=== PATIENT | female | born 1980 | race Caucasian/White ===

== ENCOUNTER 2020-05-05 09:54 | Outpatient (CLI) | payer BC, SELFPAY ==
[2020-05-05 11:01] LABS: Free T4 Free Thyroxine 2.06 ng/dL (0.76-1.46)
[2020-05-05 11:38] LABS: Thyroid Stimulating Hormone < 0.01 uIU/mL (0.36-3.74)
== END 2020-05-05 09:55 | disposition home or self-care (01) ==
LOC: CHSLAB 09:59
PROVIDERS: PCP Internal Medicine; Visit Provider Internal Medicine Endocrinology, Diabetes & Metabolism
DX: E89.0 Postprocedural hypothyroidism (principal)
CPT/HCPCS: 36415; 84439; 84443

== ENCOUNTER 2021-10-09 15:14 | Emergency (ER) | payer OTHER, SELFPAY ==
[2021-10-09 15:20] VITALS: BP 141/87; PULSE 100; RESP 16; TEMP 36.9; O2SAT 100
[2021-10-09 15:40] LABS: Basophils Absolute Auto 0.1 K/mm3 (0.0-0.1); Basophils Percent Auto 0.6 % (0.2-1.2); Eosinophils Absolute Auto 0.1 K/mm3 (0-0.3); Eosinophils Percent Auto 0.8 % (0-4.4); Hematocrit 43.1 % (37.0-47.0); Hemoglobin 14.2 g/dL (12.0-15.0); Immature Granulocyte Absolute 0.04 K/mm3 (0.00-0.031); Immature Granulocyte Percent A 0.3 % (0-0.5); Lymphocytes Absolute Auto 2.48 K/mm3 (0.9-3.2); Lymphocytes Percent Auto 18.7 % (18.3-44.2); Mean Corpuscular HGB Conc 32.9 g/dl (32-36); Mean Corpuscular Hemoglobin 28.9 pg (26-34); Mean Corpuscular Volume 87.6 fl (80-100); Mean Platelet Volume 10.6 fl (7.4-10.4); Monocytes Absolute Auto 0.4 K/mm3 (0.1-0.6); Monocytes Percent Auto 2.6 % (2.6-8.5); Neutrophils Absolute Auto 10.2 K/mm3 (1.3-6.7); Platelet Count Result 436 k/mm3 (150-375); Red Blood Count 4.92 M/mm3 (4.2-5.4); White Blood Count 13.3 K/mm3 (4.5-10.0)
[2021-10-09 16:08] LABS: Beta HCG Quantitative < 2.39 mIU/ML
[2021-10-09 16:13] VITALS: BP 124/78; PULSE 89; RESP 16; O2SAT 98
--- NOTE | 2021-10-09 16:38 | ED.FEMALEGU ---
HPI - Female Genitourinary General Chief complaint: Vaginal Bleeding Stated complaint: vaginal bleeding Time Seen by Provider: 10/09/21 16:10 History of Present Illness HPI Narrative: 41-year-old female with several years of increasing worsening heavy periods, she has seen multiple gynecologists who subsequently retired and had in the past tried a trial of OCPs without improvement Related Data Home Medications Medication Instructions Recorded Confirmed levothyroxine 200 mcg tablet 200 mcg PO DAILY 10/09/21 Allergies Allergy/AdvReac Type Severity Reaction Status Date / Time latex Allergy Hives Verified 10/09/21 16:13 Review of Systems Review of Systems: CONST: No fever. HEENT: No sore throat C/V: No chest pain RESP: No cough GI: Cramping : Vaginal bleeding M/S: No joint pain. SKIN: No rash. NEURO: [No headache or focal numbness or weakness] PSYCH: [No depression] [facility] Past Medical History Medical History (Updated 10/09/21 @ 17:03 by Marie Guillaume MD) Dysfunctional uterine bleeding Exam Narrative: EXAMINATION OF ORGAN SYSTEMS/BODY AREAS: Constitutional: Vital signs per nursing GENERAL:[No acute distress, non-toxic appearing.] HEAD: Normal with no signs of head trauma. EYES: EOMI, conjunctiva normal ENT: Hearing grossly intact LUNGS: Nonlabored breathing. HEART: [Regular rate and rhythm] ABD: [Soft], [nontender to palpation] : Small amount of blood in vault without continuous large hemorrhage EXT: Normal range of motion SKIN: [No rashes or lesions.] NEURO: [Alert and oriented x 3. No gross focal sensory or strength deficits.] PSYCH: Normal affect Course Vital Signs Vital signs: Vital Signs Temperature 98.4 F 10/09/21 15:20 Pulse Rate 100 10/09/21 15:20 Respiratory Rate 16 10/09/21 15:20 Blood Pressure 141/87 H 10/09/21 15:20 Pulse Oximetry 100 10/09/21 15:20 Oxygen Delivery Room Air 10/09/21 15:20 Temperature 98.4 F 10/09/21 15:20 Pulse Rate 89 10/09/21 16:13 Respiratory Rate 16 10/09/21 16:13 Blood Pressure 124/78 10/09/21 16:13 Pulse Oximetry 98 10/09/21 16:13 Oxygen Delivery Room Air 10/09/21 15:20 MDM - Female Genitourinary MDM Narrative Medical decision making narrative: 41-year-old female presenting with heavy uterine bleeding, vital signs stable, on exam she does have small amount of blood in the vaginal vault but no active significant hemorrhage, CBC within acceptable limits, discussed with CAFE ATTENDANT on-call as she does not want to try OCPs, will try PO TXA. Stable for discharge at this time w/ f/u to her CAFE ATTENDANT, return precautions discussed. Lab Data Result diagrams: 10/09/21 15:22 Labs: Lab Results 10/09/21 10/09/21 10/09/21 Range/Units 15:21 15:22 15:22 WBC 13.3 H (4.5-10.0) K/mm3 RBC 4.92 (4.2-5.4) M/mm3 Hgb 14.2 (12.0-15.0) g/dL Hct 43.1 (37.0-47.0) % MCV 87.6 (80-100) fl MCH 28.9 (26-34) pg MCHC 32.9 (32-36) g/dl RDW 13.0 (11.5-14.5) % Plt Count 436 H (150-375) k/mm3 MPV 10.6 H (7.4-10.4) fl Immature Gran % (Auto) 0.3 (0-0.5) % Neut % (Auto) 77.0 H (45.5-73.1) % Lymph % (Auto) 18.7 (18.3-44.2) % Evans % (Auto) 2.6 (2.6-8.5) % Eos % (Auto) 0.8 (0-4.4) % Baso % (Auto) 0.6 (0.2-1.2) % Lymph # (Auto) 2.48 (0.9-3.2) K/mm3 Evans # (Auto) 0.4 (0.1-0.6) K/mm3 Eos # (Auto) 0.1 (0-0.3) K/mm3 Baso # (Auto) 0.1 (0.0-0.1) K/mm3 Abs Immat Gran (auto) 0.04 H (0.00-0.031) K/mm3 Absolute Neuts (auto) 10.2 H (1.3-6.7) K/mm3 Absolute Nucleated RBC 0.0 (0.0-0.012) K/mm3 Nucleated RBC % 0.0 (0.0-0.2) % Beta HCG, Quant < 2.39 mIU/ML Blood Type O Positive Antibody Screen Negative Screen Not Reportable Baby's Blood Type Not Reportable Baby's HUE Not Reportable Doses of RhIg Required 0 Discharge Plan Discharge Clinical Impression: Vaginal bleeding Pa
[2021-10-09 17:20] VITALS: BP 114/75; PULSE 74; RESP 16; O2SAT 99
== END 2021-10-09 17:20 | disposition home or self-care (01) ==
PROVIDERS: Emergency Provider Emergency Medicine; PCP Internal Medicine
DX: N92.0 Excessive and frequent menstruation with regular cycle (principal)
CPT/HCPCS: 36415; 84702; 85025; 85461; 99284

== ENCOUNTER 2021-11-30 09:39 | Outpatient (CLI) | payer OTHER, SELFPAY ==
[2021-11-30 10:06] LABS: Basophils Absolute Auto 0.07 K/mm3 (0.00-0.10); Basophils Percent Auto 0.5 % (0.0-1.0); Eosinophils Absolute Auto 0.12 K/mm3 (0.02-0.50); Eosinophils Percent Auto 0.8 % (1.0-6.0); Hemoglobin 14.4 g/dL (12.0-15.0); Immature Granulocyte Absolute 0.07 K/mm3 (0.00-0.00); Immature Granulocyte Percent A 0.5 % (0.0-0.0); Lymphocytes Absolute Auto 2.05 K/mm3 (1.10-4.50); Lymphocytes Percent Auto 14.2 % (18.0-42.0); Mean Corpuscular HGB Conc 32.7 g/dL (32.0-36.0); Mean Corpuscular Hemoglobin 27.9 pg (27.0-31.0); Mean Corpuscular Volume 85.3 fL (78.0-102.0); Mean Platelet Volume 10.8 fl (9.2-11.8); Monocytes Absolute Auto 0.73 K/mm3 (0.10-0.90); Neutrophils Absolute Auto 11.4 K/mm3 (1.7-7.2); Platelet Count Result 411 K/mm3 (150-420); Red Blood Count 5.16 M/mm3 (4.20-5.40); Red Cell Distribution Width 13.5 % (11.6-14.4); White Blood Count 14.5 K/mm3 (4.8-10.8)
[2021-11-30 10:11] LABS: Appearance Urine Clear (Clear); Bilirubin Urine Negative (Negative); Blood Urine Negative (Negative); Glucose Urine UA Negative (Negative); Ketones Urine Negative (Negative); Leukocyte Esterase Ur Negative LEU/UL (Negative); Nitrate Urine Negative (Negative); Protein Urine Negative (Negative); Specific Grav Ur <= 1.005 (1.010-1.020); Urobilinogen Urine 0.2 mg/dL (0.2-1.0)
[2021-11-30 10:16] LABS: Add Urine Microscopic? NO; Color Urine Light Yellow (Yellow)
[2021-11-30 10:26] LABS: Alanine Aminotransferase 32 U/L (14-59); Albumin Level 3.5 g/dL (3.4-5.0); Alkaline Phosphatase 124 U/L (46-116); Anion Gap 11 mmol/L (8-16); Aspartate Amino Transferase 13 U/L (15-37); Bilirubin,Total 0.4 mg/dL (0.00-1.00); Blood Urea Nitrogen 8 mg/dL (7-18); Calcium 9.1 mg/dL (8.5-10.1); Carbon Dioxide 25 mmol/L (21-32); Chloride 105 mmol/L (98-108); Cholesterol 171 mg/dL (0-200); Estimated Glomerular Filt Rate > 60; Glucose 101 mg/dL (70-99); HDL Direct 35 mg/dL (40-60); LDL Cholesterol Calculated 123 mg/dL (<130); Osmolality Calculated 290 mOsm/kg (285-295); Potassium 4.2 mmol/L (3.5-5.1); Sodium 141 mmol/L (136-145); Total Protein 6.7 g/dL (6.4-8.2); Triglycerides 65 mg/dL (0-150)
== END 2021-11-30 09:40 | disposition home or self-care (01) ==
LOC: CHSLAB 09:41
PROVIDERS: PCP Internal Medicine; Visit Provider Internal Medicine
DX: Z00.00 Encounter for general adult medical examination without abnormal findings (principal)
CPT/HCPCS: 36415; 80053; 80061; 81003; 85025

== ENCOUNTER → 2021-12-26 10:02 | Outpatient (CLI) | payer OTHER, SELFPAY ==
--- NOTE | ~2021-12-26 | US_ITS ---
EXAMINATION: US pelvic complete w TV DATE: 12/26/2021 10:37 INDICATION: Bilateral pelvic pain. Comparison:No prior studies for comparison. TECHNIQUE: Multiple transabdominal and endovaginal sonographic images of the pelvis performed. FINDINGS: The uterus measures 9.1 x 4.9 x 6 cm. The endometrial complex measures 1.5 cm. The right ovary measures 2.6 x 1.5 x 1.6 cm and the left ovary measures 2.7 x 1.9 x 2.4 cm. There ar e small follicles in each ovary. Normal doppler signal in both ovaries. There is no free fluid in the pelvis. There are no abnormal masses seen on either side. IMPRESSION: 1. Endometrial thickening measuring 1.5 cm. Reviewed, dictated and finalized at location A.
== END ==
LOC: EXPGOSHRAD 10:05
PROVIDERS: PCP Obstetrics & Gynecology; Visit Provider Obstetrics & Gynecology
DX: R10.2 Pelvic and perineal pain (principal)
CPT/HCPCS: 76830; 76856

== ENCOUNTER 2022-01-24 07:53 | Outpatient (CLI) | payer OTHER, SELFPAY ==
[2022-01-28 19:34] LABS: FSH 3.3 mIU/mL (***)
== END 2022-01-24 07:54 | disposition home or self-care (01) ==
LOC: CHSLAB 07:56
PROVIDERS: PCP Internal Medicine; Visit Provider Obstetrics & Gynecology
DX: N95.1 Menopausal and female climacteric states (principal)
CPT/HCPCS: 36415; 83001

== ENCOUNTER 2022-03-19 11:06 | Outpatient (CLI) | payer OTHER, SELFPAY | END 2022-03-19 11:07 | disposition home or self-care (01) | PROVIDERS: PCP Internal Medicine; Visit Provider Obstetrics & Gynecology | DX: N92.0 Excessive and frequent menstruation with regular cycle (principal); Z01.818 Encounter for other preprocedural examination | CPT/HCPCS: 36415; 86850; 86900; 86901 ==

== ENCOUNTER → 2022-03-19 13:41 | Outpatient (CLI) | payer OTHER, SELFPAY ==
--- NOTE | ~2022-03-19 | MM_ITS ---
EXAMINATION: MM screening krysta BI w bola HISTORY: Screening mammogram TECHNIQUE: Craniocaudal and mediolateral oblique 3-D tomosynthesis images were obtained and synthetic 2-D images were generated. CAD analysis was submitted and interpreted. COMPARISON: No prior mammogram is available for comparison at this institution. BREAST PARENCHYMAL COMPOSITION: The breasts are heterogeneously dense, which may obscure small masses . FINDINGS: There is a biopsy marker on the left; history of prior benign left stereotactic breast biop sy. Numerous benign appearing punctate microcalcifications are scattered in the fibroid of stroma of both breasts. There is no evidence of suspicious mass, calcification, or architectural distortion to sugg est malignancy in either breast. There has been no suspicious interval change. IMPRESSION: 1. No mammographic evidence of malignancy. 2. Recommend routine screening mammography in one year. BI-RADS Category 2: Benign finding(s). Reviewed, dictated and finalized at location A. ICATION OPERATOR
== END ==
PROVIDERS: PCP Obstetrics & Gynecology; Visit Provider Obstetrics & Gynecology
DX: Z12.31 Encounter for screening mammogram for malignant neoplasm of breast (principal)
CPT/HCPCS: 77063; 77067

== ENCOUNTER 2022-03-26 00:37 | Day surgery (SDC) | payer OTHER, SELFPAY ==
[2022-03-17 10:26] VITALS: BMI 34.2
--- NOTE | 2022-03-17 10:33 | PC.NURSE ---
Report to the Outpatient Waiting Room, entrance under the green pavilion located off [facility], at time 6:00 on date 03/26/22. Planned Procedure Time: 7:30. Time changes happen often and if your time is changed the preop area will call you the afternoon before. - You and your visitor will be asked to self-screen and do not enter if you have any COVID symptoms. - Only one visitor is requested with a max of two and NO children visitors are allowed at this time. - The patient visitor may be requested to leave or wait in car when not with patient due to distancing restrictions. - A mask is optional within the hospital. Patients may have clear liquids (water, carbonated beverages, clear teas, apple juice) until 3 hours prior to surgery with a maximum of 20 ounces. - No food from midnight until time of surgery Take the following medications with a SIP of water the morning of surgery: LEVOTHYROXINE Medications to discontinue per physician: N/A Date to take last dose: N/A Please no make-up, nail lao, hairspray, perfume, deodorant, or body powder the day of surgery. No jewelry (including any body piercings) or valuables the day of surgery, leave them at home. Please take a shower or bath the night before, or the morning of, surgery with an antibacterial soap. Wear comfortable, loose fitting clothing. - Jewelry must be removed prior to entering the operating room. Rings and piercings that are not removed may be cut off. - The hospital will not accept responsibility for valuables. - Please leave all valuables, including medications, at home the day of surgery. If you are going home after surgery, a licensed straddle bug driver must drive you home. - NO public transportation without another adult if you receive anesthesia. - We recommend that an adult stay with you for 24 hours following discharge. - We also recommend that you do not drive, make important decision, drink alcoholic beverages, or take any drugs that were not prescribed by your health care provider for at least 24 hours after your discharge time. Follow any additional instructions given to you from your surgeon. If you or anyone in your household have experienced Covid symptoms in the past week, please notify your surgeon or the nurse liaison at the phone number below for possible testing. Telephone instructions given to PT - VIKTOR GA and asked if any additional questions and then verbalized understanding. Patient advised to call surgeon office or pre surgery nurse liaison [phone] if any additional questions.
--- NOTE | 2022-03-25 21:30 | PM.IMHP ---
H&P: HPI History of Present Illness Date/Time: 03/25/22 21:30 Chief Complaint: Heavy bleeding and dysmenorrhea. Review of Systems Review of Systems: She has a long history of heavy bleeding. She has had ED visits for menorrhagia. Has tried OCP and Lysteda in past without relief. She has also had significant dysmenorrhea since had Essure. Has had a normal endometrial biopsy. She desires definitive treatment of the menorrhagia. It has caused alot of dysfunction for her and she declines all other hormonal options, declines endometrial ablation. All systems reviewed & are unremarkable except as noted in HPI and below Constitutional: Constitutional: Reports no additional constitutional complaints Eyes: Eyes: Reports no additional eye complaints Cardiovascular: Cardiovascular: Reports no additional cardiovascular complaints Respiratory: Respiratory: Reports no additional respiratory complaints Gastrointestinal: Gastrointestinal: Reports no additional gastrointestinal complaints Genitourinary: Genitourinary: Reports no additional female genitourinary complaints and Reports as per HPI Integumentary/Breasts: Skin/Breast: Reports system reviewed and no additional complaints, except as docu Neurologic: Reports system reviewed and no additional complaints, except as documented Psychiatric: Psychiatric: Reports no additional psychiatric complaints Hematologic/Lymphatic: Hematologic/Lymphatic: Reports no additional hematologic/lymphatic complaints [facility] Past Medical History Medical History Dysfunctional uterine bleeding Encounter for Essure implantation Headache Thyroid disorder Surgical History Surgical History History of cholecystectomy S/P thyroidectomy Family History Family History Other Carcinoma of colon Cerebrovascular accident Cervical cancer Diabetes mellitus Thyroid disorder Social History Social History Smoking packs per day: 0.5 Smoking cigarettes per day: 10.0 Years smoked: 28 Smoking pack-years: 14.00 Smoking status: Current every day smoker Tobacco type: cigarettes Alcohol intake: current Alcohol use details: 2/MONTH Substance use: current Substance use type: marijuana Living arrangements: with family Spiritual care concerns: No Meds Home Medications and Allergies Home Medications Medication Instructions Recorded Confirmed Type levothyroxine 200 mcg tablet 200 mcg PO DAILY 10/09/21 03/19/22 History rizatriptan 10 mg tablet 10 mg PO ONCE 12/24/21 03/19/22 History Allergies Allergy/AdvReac Type Severity Reaction Status Date / Time latex Allergy Hives Verified 03/19/22 10:15 Exam Const: General: comfortable and no acute distress Orientation/consciousness: oriented to person, oriented to place and oriented to time Eyes: General: appearance normal, both eyes and all related structures Neck: Neck: normal visual inspection Resp: Effort & Inspection: normal respiratory effort Auscultation: clear to auscultation bilaterally Cardio: Rate: regular rate Rhythm: regular rhythm GI: Inspection: normal to inspection GI Palp: No abdominal tenderness and Yes No hepatosplenomegaly present : External Female Exam: normal external appearance Speculum Exam - Vagina: normal appearance of the vagina Speculum Exam - Cervix: normal appearance of the cervix Bimanual exam- vagina & uterus: normal bimanual exam, uterine mobility normal, uterine shape normal and non-tender Bimanual Exam- Adnexa, other: no masses and No adnexal tenderness Skin: General skin exam: normal color Neuro: General: oriented to person, oriented to place and oriented to time Psych: Appearance: grossly normal Assessment and Plan Assessment and plan (1) Menorrhag
[2022-03-26] VITALS (13 sets, daily range): BP systolic 108–133; BP diastolic 56–84; PULSE 56–86; RESP 16–20; TEMP 36.1–36.9; O2SAT 94–99
[2022-03-26] MEDS: ACETAMINOPHEN 500 MG TABLET 1000 MG PO (06:23)
[2022-03-26] MEDS: LACTATED RINGERS 1,000 ML 30 ML IV CONT ×2 (06:50→09:53)
--- NOTE | 2022-03-26 06:52 | P.PNAN_ITS ---
Anes - Initial Pre Proc Eval Procedure: Operation Date: 03/26/22 07:30 Proposed Procedures p Robotic Laparoscopic Total Hysterectomy with Bilateral Salpingectomy - Dorian Gr MD Date/Time: 03/26/22 06:52 Surgeon: Dorian Gr MD Pre Op Diagnosis: menorrhagia Patient Data Age: 41 Gender: F Height: 1.56 m Weight: 83.5 kg Allergies Allergy/AdvReac Type Severity Reaction Status Date / Time latex Allergy Hives Verified 03/26/22 06:08 Home Medications Medication Instructions Recorded Confirmed Type levothyroxine 200 mcg tablet 200 mcg PO DAILY 10/09/21 03/26/22 History rizatriptan 10 mg tablet 10 mg PO ONCE 12/24/21 03/19/22 History Patient hx anesthesia problems: none Family hx anesthesia problems: none Results Review: All pre-operative results and documents have been reviewed as part of the pre- operative evaluation. [facility] [place] Past Medical History Medical History Dysfunctional uterine bleeding Encounter for Essure implantation Headache Thyroid disorder Surgical History Surgical History History of cholecystectomy S/P thyroidectomy Family History Family History Other Carcinoma of colon Cerebrovascular accident Cervical cancer Diabetes mellitus Thyroid disorder Social History Social History Smoking packs per day: 0.5 Smoking cigarettes per day: 10.0 Years smoked: 28 Smoking pack-years: 14.00 Smoking status: Current every day smoker Tobacco type: cigarettes Alcohol intake: current Alcohol use details: 2/MONTH Substance use: current Substance use type: marijuana Living arrangements: with family Spiritual care concerns: No Anes - Eval Final PreProcedure Day of Procedure 03/26/22 06:52 Patient weight: obese Heart: regular rate and rhythm Lungs: clear to auscultation Airway: Mallampati scale class II and special considerations poor dentition ASA classification: III Emergent: no Anesthetic plan: proceed Anesthesia type and monitoring: general ETT and standard monitoring Results Review: All pre-operative results and documents have been reviewed as part of the pre- operative evaluation. Informed Consent: The patient's anesthetic plan and its attendant risks and benefits were discussed with the patient/family/POA. Questions were solicited and answers provided to the satisfaction of the patient/family/POA.
[2022-03-26] MEDS: KETOROLAC 15 MG/ML VIAL (*BKC) IV PUSH (07:14)
--- NOTE | 2022-03-26 07:18 | WPDHPUPDATE1 ---
History and Physical Update Update Date/Time: 03/26/22 07:18 History and Physical has been reviewed, including an updated exam of the patient. There are NO changes in the patient's condition. Risks, benefits, and alternatives have been discussed and questions answered. Patient agrees to proceed with procedure.
[2022-03-26] MEDS: ceFAZolin 2 GM/D5W 50 ML 2 GM/50 ML BAG IVPB (07:29)
[2022-03-26] MEDS: BUPivacaine HCL 0.5% PF 30 ML VIAL 25 ML INFILTRATE (08:00)
--- NOTE | 2022-03-26 08:57 | SUR.OPER ---
SPECIMEN IS CERVIX UTERUS BILATERAL FALLOPIAN TUBES/COVERED WITH FORMALYN
--- NOTE | 2022-03-26 09:39 | SUR.OPER ---
EBL 100ml
--- NOTE | 2022-03-26 10:11 | PM.OP ---
Procedure Note - Brief Procedure Note - Brief Date of procedure: 03/26/22 Pre-op diagnosis: menorrhagia same Post-op diagnosis: Same Procedure performed: Robotic assisted laparoscopic total vaginal hysterectomy with bilateral salpingectomy Anesthesia: KAIAA Surgeon: Dorian Gr MD Estimated blood loss (mL): 100 Drains: No Packing: No Pathology: Yes (uterus with cervix and both fallopian tubes) Complications: No immediate complications Condition: Stable Disposition: PACU
--- NOTE | 2022-03-26 11:14 | OBPPTRN ---
1120 Patient transferred to post room #283 via bed. Support person present. Oriented to unit, room, information board, admission packet and security measures. Patient verbalizes understanding.
--- NOTE | 2022-03-26 11:44 | W.PM.PROC2 ---
Procedure Note - Detailed Date of Procedure 03/26/22 Pre-op Diagnosis menorrhagia Post-op Diagnosis Same Procedure Performed Robotic assisted laparoscopic total vaginal hysterectomy with bilateral salpingectomy Surgeon Dorian Gr MD Breaker Unit Assembler terri Russell Anesthesia General Indications patient with history menorrhagia resistant to past treatments affecting social activities desires definitive treatment with hysterectomy normal endometrial biopsy. Findings Uterus normal size fallopian tubes and ovaries normal Description of Procedure After informed consent was obtained she was taken to the operating room and general endotracheal anesthesia was administered. She was placed in low lithotomy position. An exam under anesthesia was performed. Uterus anteverted, no adnexal masses palpated. She was and prepped and draped in sterile fashion. Gonzalez catheter placed in bladder. Attention was turned to the vagina speculum was inserted. Single-tooth tenaculum placed on anterior lip of the cervix the uterus sounded to 9 cm. The cervix was dilated to a 8 Dye dilator. A size 8 uterine manipulator was inserted and secured. A size 3.05 colp cup was secured in the vagina. Vaginal balloon inflated. Attention was turned to the abdomen with new sterile gloves. .5% marcaine injected subcutaneously. An incision was made horizontal 2 cm above the umbilicus. a Veress needle was inserted confirmation into the abdomen obtained with normal free flow of fluid and normal peritoneal pressures. A pneumoperitoneum of 15 mmHg was obtained. A size 5 port was inserted under laparoscopic visualization. Confirmation into the abdomen obtained.A small incision was made approximately 10cm lateral to the port on the left side of the port. A size 8mm robotic port was inserted under laparoscopic visualization into the abdomen on the left side. Attention was then turned to the right side of the abdomen and parallel to this 10 cm to the right of the supraumbilical port 0.5% Marcaine was injected subcutaneously an 8 mm robotic port was inserted under laparoscopic visualization. 5 cm superior and medial to this a legal assistant port was inserted under laparoscopic visualization. The camera was then inserted into the right lateral port and the 5 mm port was removed and an 8 mm robotic port was inserted under laparoscopic visualization. Patient was placed in Trendelenburg position. The intestines were placed out of the cul-de-sac. Good visualization was noted. The robotic arms were then attached to the ports. Attention was then turned to the surgery consult. The right round ligament was cauterized and ligated and the anterior leaf of the broad ligament was further dissected anteriorly. The right side of the bladder and the left side were dissected off the lower uterine segment. This was done to below where the colp cup was palpated. The right fallopian tube was ligated from the broad ligament and mesosalpinx. The right ovarian ligament was ligated with the vessel sealer. The a posterior leaf of the broad ligament was further dissected. The ascending uterine vessels on the right were ligated. The uterine vessels were ligated. Attention was turned to the left round ligament which was ligated and the anterior leaf of the broad ligament was dissected anteriorly. The rest of the vesicouterine peritoneum was dissected off of the uterus. Once the bladder was dissected below the colp cup then the Fallopian tube was ligated from the broad ligament. The posterior leaf of the broad ligament was further dissected. The ovarian ligament was ligated. The ascending uterine vessels were ligated with the syncroseal. The ascending uterine arteries were cauterized. The uterine arteries were ligated. The cardinal ligaments were ligated. This was done on both sides. An incision was made anterior colpotomy incision was made and this was carried around until the cervix was removed from the
[2022-03-26] MEDS: DEXTROSE 5%/0.45% SOD CHL 1,000 ML 125 ML IV CONT (11:52)
[2022-03-26] MEDS: SIMETHICONE 80 MG TAB.CHEW PO (19:25)
[2022-03-27 04:30] VITALS: BP 98/51; PULSE 74; RESP 18; TEMP 36.7
[2022-03-27] MEDS: SIMETHICONE 80 MG TAB.CHEW PO (08:13)
[2022-03-27 08:40] VITALS: BP 105/58; PULSE 70; RESP 17; TEMP 36.9; O2SAT 97
--- NOTE | 2022-03-27 08:53 | WPDANESPN ---
Anes - Prog Note Post-Op Date/Time: 03/27/22 08:41 Cardiovascular status: normal Respiratory status: normal Airway patency: baseline Mental status: baseline Post-Op hydration status: normal Vital Signs: Last Vital Signs Temp 98.5 F 03/27/22 08:40 Pulse 70 03/27/22 08:40 Resp 17 03/27/22 08:40 BP 105/58 L 03/27/22 08:40 Pulse Ox 97 03/27/22 08:40 O2 Del Method Room Air 03/27/22 08:15 O2 Flow Rate 2 03/26/22 11:10 Pain Score (VAS): 2 I/O: Intake & Output 03/26/22 03/27/22 03/27/22 23:59 07:59 15:59 Intake Total 340 200 Balance 340 200 Post-procedural complaints: none Patient Feedback: Patient satisfied with anesthetic care.
== END 2022-03-27 09:08 | disposition home or self-care (01) ==
LOC: ANHSURGERY 06:11 → ANHOB2 11:17
PROVIDERS: PCP Internal Medicine; Visit Provider Obstetrics & Gynecology
PROC: (CPT 58571; principal; 2022-03-26 07:30)
DX: N92.0 Excessive and frequent menstruation with regular cycle (principal); E89.0 Postprocedural hypothyroidism; F17.210 Nicotine dependence, cigarettes, uncomplicated; F12.90 Cannabis use, unspecified, uncomplicated; E66.9 Obesity, unspecified; Z68.33 Body mass index [BMI] 33.0-33.9, adult
CPT/HCPCS: 58571; S2900; 36415; 86850; 86900; 86901; 88307; 99199; A9270; J0131; J0690; J1100; J1170; J1885; J2250; J2405; J2704; J3010; J7030; J7120

== ENCOUNTER 2022-11-26 07:18 | Outpatient (CLI) | payer BC, SELFPAY ==
[2022-11-26 08:41] LABS: Calcium 9.3 mg/dL (8.5-10.1); Free T3 1.33 pg/mL (2.18-3.98); Free T4 Free Thyroxine 0.54 ng/dL (0.76-1.46); Thyroid Stimulating Hormone 27.71 uIU/mL (0.36-3.74)
[2022-11-29 03:57] LABS: Thyroglobulin 0.3 ng/mL (2.8-40.9); Thyroglobulin Antibodies <1 IU/mL (<=1)
== END 2022-11-26 07:19 | disposition home or self-care (01) ==
LOC: CHSLAB 07:25
PROVIDERS: PCP Internal Medicine
DX: C73 Malignant neoplasm of thyroid gland (principal)
CPT/HCPCS: 36415; 82310; 84432; 84439; 84443; 84481; 86800

== ENCOUNTER 2023-05-27 11:02 | Emergency (ER) | payer BC, SELFPAY ==
[2023-05-27] VITALS (8 sets, daily range): BP systolic 128–153; BP diastolic 70–99; PULSE 55–77; RESP 18–21; TEMP 36.8; O2SAT 95–99
--- NOTE | ~2023-05-27 | XR_ITS ---
EXAMINATION: XR chest 1V portable DATE: 05/27/2023 11:22 INDICATION: Chest pain. TECHNIQUE: A single frontal view of the chest was obtained. COMPARISON: None. FINDINGS: There is no pneumonia, pleural effusion, or pneumothorax. The heart size is normal. IMPRESSION: 1. No acute cardiopulmonary disease. Reviewed, dictated and finalized at location A.
--- NOTE | 2023-05-27 11:04 | ECG_ITS ---
Measurements Intervals [place] Rate: 68 P: 57 ME: 146 QRS: 69 QRSD: 89 T: 60 QT: 401 QTc: 429 Interpretive Statements SINUS RHYTHM WITH SINUS ARRHYTHMIA INCOMPLETE RIGHT BUNDLE BRANCH BLOCK NO PREVIOUS ECG AVAILABLE FOR COMPARISON Electronically Signed On 05-27-2023 12:15:54 CDT by Jane Vargas M.D.
--- NOTE | 2023-05-27 11:05 | ED.CHESTPAIN ---
HPI - Chest Pain General Chief Complaint: Chest Pain Stated Complaint: chest pain Source: patient History of Present Illness HPI narrative: 43-year-old female, smoker with a history of thyroidectomy, cholecystectomy presents to the ER with -- chest discomfort for the past 2-3 days. The chest discomfort is currently rated as 6/10. The discomfort is unprovoked. The discomfort radiates back between her shoulder blades. She has nausea without any vomiting. -- Complains of shortness of breath but does not appear to be in any distress. -- Complains of a lot of mental stress over the past few days. MD complaint: chest heaviness Onset (ago): day(s) ( Two days) Timing of current episode: episodic Prior episodes: No Onset: during rest Pain location: substernal Pain radiation: back Severity: moderate Pain scale (0-10): 6 Quality: heaviness Relieving factors: nothing Exacerbating factors: nothing Associated symptoms: nausea Treatment prior to arrival: none Risk Factors Coronary artery disease risk factors: smoking history Related Data On Oral Contraceptives: No Home Medications Medication Instructions Recorded Confirmed levothyroxine 175 mcg tablet 175 mcg PO DAILY 05/27/23 05/27/23 Allergies Allergy/AdvReac Type Severity Reaction Status Date / Time latex Allergy Hives Verified 05/22/23 15:31 Review of Systems Review of Systems: All systems reviewed & are unremarkable except as noted in HPI and below Constitutional: Constitutional: Reports as per HPI and Reports no additional constitutional complaints Eyes: Eyes: Reports as per HPI and Reports no additional eye complaints ENT: Reports system reviewed and no additional complaints, except as documented and Reports as per HPI Cardiovascular: Cardiovascular: Reports as per HPI and Reports no additional cardiovascular complaints Respiratory: Respiratory: Reports as per HPI and Reports no additional respiratory complaints Gastrointestinal: Gastrointestinal: Reports as per HPI and Reports no additional gastrointestinal complaints Genitourinary: Genitourinary: Reports no additional female genitourinary complaints and Reports as per HPI Comments: status post hysterectomy and salpingectomy. Musculoskeletal: Musculoskeletal: Reports no additional musculoskeletal complaints and Reports as per HPI Integumentary/Breasts: Skin/Breast: Reports system reviewed and no additional complaints, except as docu and Reports as per HPI Neurologic: Reports system reviewed and no additional complaints, except as documented and Reports as per HPI Psychiatric: Psychiatric: Reports no additional psychiatric complaints and Reports as per HPI Endocrine: Endocrine: Reports no additional endocrine complaints and Reports as per HPI Hematologic/Lymphatic: Hematologic/Lymphatic: Reports no additional hematologic/lymphatic complaints and Reports as per HPI Allergic/Immunologic: Allergic/Immunologic: Reports no additional allergic/immunologic complaints and Reports as per HPI PMFSH Past Medical History Medical History Dysfunctional uterine bleeding Encounter for Essure implantation Headache Thyroid disorder Surgical History Surgical History History of cholecystectomy History of robot-assisted laparoscopic hysterectomy total vaginal hysterectomy, bilateral salpingectomy S/P thyroidectomy Family History Family History Other Carcinoma of colon Cerebrovascular accident Cervical cancer Diabetes mellitus Thyroid disorder Social History Social History Smoking packs per day: 0.5 Smoking cigarettes per day: 10.0 Years smoked: 28 Smoking pack-years: 14.00 Smoking status: Current every day smoker Tobacco type: cigarettes Alcohol intake: current
--- NOTE | 2023-05-27 11:11 | PC.NURSE ---
lab called for blood draw at this time
[2023-05-27] MEDS: ASPIRIN 81 MG CHEWABLE TABLET 324 MG PO (11:20)
[2023-05-27 11:23] LABS: Basophils Percent Auto 0.5 % (0.0-1.0); Eosinophils Absolute Auto 0.07 K/mm3 (0.02-0.50); Eosinophils Percent Auto 0.4 % (1.0-6.0); Hematocrit 43.3 % (35.0-49.0); Hemoglobin 14.6 g/dL (12.0-15.0); Immature Granulocyte Absolute 0.07 K/mm3 (0.00-0.00); Immature Granulocyte Percent A 0.4 % (0.0-0.0); Lymphocytes Absolute Auto 3.17 K/mm3 (1.10-4.50); Lymphocytes Percent Auto 16.1 % (18.0-42.0); Mean Corpuscular HGB Conc 33.7 g/dL (32-36); Mean Corpuscular Hemoglobin 28.8 pg (27.0-31.0); Mean Corpuscular Volume 85.4 fL (78.0-102.0); Mean Platelet Volume 10.6 fl (9.2-11.8); Monocytes Absolute Auto 0.51 K/mm3 (0.10-0.90); Monocytes Percent Auto 2.6 % (2.0-11.0); Neutrophils Absolute Auto 15.78 K/mm3 (1.70-7.20); Platelet Count Result 442 K/mm3 (150-420); Red Blood Count 5.07 M/mm3 (4.20-5.40); Red Cell Distribution Width 13.1 % (11.6-14.4); White Blood Count 19.7 K/mm3 (4.8-10.8)
[2023-05-27 11:37] LABS: D Dimer 0.27 mg/L (0.19-0.50)
[2023-05-27 11:38] LABS: Partial Thromboplastin Time 28.2 SEC (22.3-31.6); Prothrombin Time 11.1 Seconds (9.64-11.0)
[2023-05-27 11:49] LABS: Alanine Aminotransferase 18 U/L (14-59); Albumin Level 3.6 g/dL (3.4-5.0); Alkaline Phosphatase 111 U/L (46-116); Anion Gap 12 mmol/L (4-12); Aspartate Amino Transferase 15 U/L (15-37); Bilirubin,Total 0.5 mg/dL (0.00-1.00); Blood Urea Nitrogen 6 mg/dL (7-18); Carbon Dioxide 24 mmol/L (21-32); Chloride 103 mmol/L (98-108); Estimated CRCL calculation 105 ml/min; Estimated Glomerular Filt Rate > 60; Glucose 98 mg/dL (70-99); NT Pro B Type Natriuretic Pept 22 pg/mL (0-125); Osmolality Calculated 285 mOsm/kg (285-295); Potassium 3.3 mmol/L (3.5-5.1); Sodium 139 mmol/L (136-145); Total Protein 7.2 g/dL (6.4-8.2)
[2023-05-27 11:50] LABS: Thyroid Stimulating Hormone 0.79 uIU/mL (0.36-3.74); Troponin I < 4.0 ng/L (0.00-60.4)
== END 2023-05-27 12:15 | disposition home or self-care (01) ==
PROVIDERS: Emergency Provider Internal Medicine Critical Care Medicine; PCP Internal Medicine
DX: R07.89 Other chest pain (principal); R11.0 Nausea; R06.02 Shortness of breath; E89.0 Postprocedural hypothyroidism; F17.210 Nicotine dependence, cigarettes, uncomplicated; F12.90 Cannabis use, unspecified, uncomplicated
CPT/HCPCS: 36415; 71045; 80053; 83880; 84443; 84484; 85025; 85380; 85610; 85730; 93005; 99284; A9270

== ENCOUNTER 2023-07-11 09:01 | Outpatient (CLI) | payer BC, SELFPAY ==
[2023-07-13 23:55] LABS: Free T4 Free Thyroxine 0.85 ng/dL (0.76-1.46); Thyroid Stimulating Hormone 20.78 uIU/mL (0.36-3.74)
== END 2023-07-11 09:02 | disposition home or self-care (01) ==
LOC: CHSLAB 09:03
PROVIDERS: PCP Internal Medicine; Visit Provider Internal Medicine Endocrinology, Diabetes & Metabolism
DX: E89.0 Postprocedural hypothyroidism (principal)
CPT/HCPCS: 36415; 84439; 84443